=== PATIENT | male | born 1965 | race Caucasian/White ===

== ENCOUNTER 2016-07-29 19:09 | Emergency (ER) | payer BC ==
--- NOTE | 2016-07-31 01:40 | ER ---
ADMIT: 07/29/2016 RM/LOC: ER [facility] MR#: [id number] [id number] MAK MATTHEW [address] [place] [address] Emergency Room Report SEX: M AGE: 51 : 1965 DATE: 07/29/2016 ADDENDUM: See T-sheet for complete H and P. A 51-year-old male, who comes in with left calf pain. He is recent postop from bilateral inguinal hernia repair one week ago. He states that he developed some pain in his left calf today. He has not noted any swelling, and other than the recent surgery, he has no DVT risk factors. We did do an ultrasound of his left lower extremity which is negative for any DVT. The patient is discharged home in stable condition. Return for any concerning symptoms. Otherwise, follow up with his regular physician as scheduled. DIAGNOSIS: Left calf pain. Nick Rodriguez MD/ kaylah JOB #: [id number] CC: Nick Rodriguez MD, Attending Physician Uriah Meadows MD, Family Physician
== END 2016-07-29 21:42 | disposition home or self-care (01) ==
LOC: ER 19:09
DX: M79.662 Pain in left lower leg (principal); I10 Essential (primary) hypertension; Z79.899 Other long term (current) drug therapy